=== PATIENT | male | born 1950 | race Caucasian/White ===

== ENCOUNTER 2021-01-23 11:00 | Inpatient (IN) | payer MEDICARE, OTHER ==
[~2021-01-23] VITALS: Ht 180.3 cm; Wt 105.2 kg
[2021-01-23 10:59] LABS: BASOPHILS % (AUTO) 1.5 % (0.0-5.0); EOSINOPHILS % (AUTO) 4.2 % (0.0-8.0); HEMATOCRIT 44.3 % (42-54); LYMPHOCYTES % (AUTO) 30.8 % (21.0-51.0); MEAN CORPUSCULAR HEMOGLOBIN 33.5 pg (27.0-33.0); MEAN CORPUSCULAR HGB CONC 33.6 g/dL (32.0-36.0); MEAN CORPUSCULAR VOLUME 99.6 fL (79-99); MONOCYTES % (AUTO) 16.1 % (3.0-13.0); NEUTROPHILS % (AUTO) 47.2 % (40.0-77.0); PLATELET COUNT (AUTO) 174 K/uL (130-400); RED BLOOD CELL COUNT(AUTO) 4.45 MIL/uL (4.50-6.20); RED CELL DISTRIBUTION WIDTH 12.5 % (11.0-15.5)
[2021-01-23 11:06] LABS: POTASSIUM 4.2 mmol/L (3.5-5.1)
[2021-01-23 11:07] LABS: APPEARANCE,URINE Clear (CLEAR); BILIRUBIN,URINE Negative (NEGATIVE); COLOR,URINE Orange (YELLOW); GLUCOSE, URINE (UA) Negative (NEGATIVE); KETONES,URINE Trace mg/dL (NEGATIVE); LEUKOCYTE ESTERASE ,URINE Trace (NEGATIVE); NITRATE,URINE Negative (NEGATIVE); OCCULT BLOOD,URINE Negative (NEGATIVE); PROTEIN,URINE Negative (NEGATIVE)
[2021-01-23 11:10] LABS: PROTHROMBIN TIME 10.9 SEC (9.6-11.6)
[2021-01-23 11:19] LABS: BACTERIA,URINE Rare /HPF (None Seen); RBC,URINE 0-1 /HPF (0-1); SQUAMOUS EPITHELIAL CELL,UR Rare /HPF (0-2); WBC,URINE 0-1 /HPF (0-1)
[2021-01-24 11:29] VITALS: BP 154/70
[2021-01-24] MEDS ORDERED: TAMS-1 PO (12:33)
[2021-01-24] MEDS ORDERED: BENA40TA92 PO (12:33)
[2021-01-24] MEDS ORDERED: METO-391 PO (12:33)
[2021-01-24] MEDS ORDERED: VITAMIN B12 PO (12:33)
[2021-01-27] VITALS (23 sets, daily range): BP systolic 88–174; BP diastolic 44–91
[2021-01-27] MEDS ORDERED: LACTATED RINGERS 1000ML 1,000 ML IV ONE (08:24)
[2021-01-27] MEDS ORDERED: CEFAZOLIN SODIUM 1 GM VIAL ONE ×3 (09:34→20:17)
[2021-01-27] MEDS ORDERED: TRANEXAMIC ACID 1000MG/10ML ONE ×2 (09:35→15:26)
[2021-01-27] MEDS ORDERED: ACETAMINOPHEN 500 MG TABLET ONE (09:37)
[2021-01-27] MEDS ORDERED: CELECOXIB 200 MG CAP ONE (09:38)
[2021-01-27] MEDS: CEFAZOLIN SODIUM 1 GM VIAL IVP SCH ×3 (09:44→21:02)
[2021-01-27] MEDS ORDERED: SUCCINYLCHOLINE CHLORIDE 20 MG/ML 10 ML VIAL ONE (09:48)
[2021-01-27] MEDS ORDERED: DEXAMETHASONE SOD PHOSPHATE 10MG/ML 1ML VIAL ONE ×2 (09:48→10:48)
[2021-01-27] MEDS ORDERED: LIDOCAINE PF 100MG/5ML (2%) SYRINGE 5ML ONE (09:48)
[2021-01-27] MEDS ORDERED: GLYCOPYRROLATE 1 MG/5 ML SYRINGE ONE (09:49)
[2021-01-27] MEDS ORDERED: MIDAZOLAM HCL 1 MG/ML 2ML VIAL ONE (09:49)
[2021-01-27] MEDS ORDERED: ONDANSETRON 4MG INJ ONE (09:50)
[2021-01-27] MEDS ORDERED: FENTANYL CITRATE PF 50 MCG/1 ML 2ML VIAL ONE (09:50)
[2021-01-27] MEDS ORDERED: ROCURONIUM 10MG/1ML SYR 10 MG/ML ML ONE ×2 (09:50→11:25)
[2021-01-27] MEDS ORDERED: NEOSTIGMINE 5MG/5ML SYR IV ONE (09:50)
[2021-01-27] MEDS ORDERED: PROPOFOL 10 MG/ML 20ML VIAL IV ONE (09:50)
[2021-01-27] MEDS ORDERED: ROPIVACAINE 0.5% 5MG/ML 30ML IJ ONE ×2 (10:01)
[2021-01-27] MEDS ORDERED: MEPERIDINE-PF 25 MG/ML SYG ONE (10:20)
[2021-01-27] MEDS ORDERED: PHENYLEPHRINE HCL 10 MG/ML 1ML VIAL IV ONE (11:01)
[2021-01-27] MEDS ORDERED: FENTANYL CITRATE PF 50 MCG/1 ML 5ML AMP IV ONE (11:25)
[2021-01-27] MEDS ORDERED: CEFAZOLIN SODIUM 1 GM VIAL IRRIG ONE (11:50)
[2021-01-27] MEDS ORDERED: EPHEDRINE SULFATE 50 MG/ML AMPULE ONE ×2 (12:17→14:20)
[2021-01-27] MEDS ORDERED: VASOPRESSIN 20 UNITS/ML 1ML VIAL ONE (15:04)
[2021-01-27] MEDS ORDERED: LIDOCAINE HCL-MPF 1% 2ML VIAL IV PRN (17:00)
[2021-01-27] MEDS: 0.9%NACL 1000ML 1,000 ML IV SCH (17:00)
[2021-01-27] MEDS ORDERED: DiphenhydrAMINE HCL 50 MG/ML VIAL IVP PRN (17:00)
[2021-01-27] MEDS ORDERED: KETOROLAC 15MG/ML VIAL (15MG/ML) IV PRN (17:00)
[2021-01-27] MEDS ORDERED: ONDANSETRON 4MG INJ IVP PRN (17:00)
[2021-01-27] MEDS ORDERED: POTASSIUM CHLORIDE 20MEQ/100ML 100 ML IV PRN (17:00)
[2021-01-27] MEDS ORDERED: POTASSIUM CHLORIDE 10% ELIXIR 20 MEQ/15 ML UDCUP PO PRN (17:00)
[2021-01-27] MEDS ORDERED: FERROUS FUMARATE 324 MG TABLET PO PRN (17:00)
[2021-01-27] MEDS: ACETAMINOPHEN 500 MG TABLET PO SCH (17:00)
[2021-01-27] MEDS ORDERED: TEMAZEPAM 15 MG CAPSULE PO PRN (17:00)
[2021-01-27] MEDS ORDERED: KCL 20 MEQ ERTAB PO PRN (17:00)
[2021-01-27] MEDS ORDERED: CALCIUM CARB 500MG PO PRN (17:00)
[2021-01-27] MEDS ORDERED: OXYCODONE HCL 5 MG TAB PO PRN (17:00)
[2021-01-27] MEDS ORDERED: TRAMADOL HCL 50 MG TABLET PO PRN (17:00)
[2021-01-27] MEDS: CELECOXIB 200 MG CAP PO SCH (20:49)
[2021-01-27] MEDS: PREGABALIN 25 MG CAP PO SCH (20:49)
[2021-01-27] MEDS: FAMOTIDINE 20MG TAB PO SCH (20:49)
[2021-01-27] MEDS: APIXABAN 2.5 MG TABLET PO SCH (20:50)
[2021-01-28] MEDS: ACETAMINOPHEN 500 MG TABLET PO SCH ×3 (01:00→20:52)
[2021-01-28] MEDS: 0.9%NACL 1000ML 1,000 ML IV SCH ×2 (03:00→13:00)
[2021-01-28 04:41] VITALS: BP 121/59
[2021-01-28 04:49] LABS: HEMATOCRIT 30.9 % (42-54); MEAN CORPUSCULAR HEMOGLOBIN 34.8 pg (27.0-33.0); MEAN CORPUSCULAR HGB CONC 34.3 g/dL (32.0-36.0); MEAN CORPUSCULAR VOLUME 101.3 fL (79-99); RED BLOOD CELL COUNT(AUTO) 3.05 MIL/uL (4.50-6.20); RED CELL DISTRIBUTION WIDTH 12.5 % (11.0-15.5); WHITE BLOOD COUNT (AUTO) 9.2 K/uL (4.8-10.8)
[2021-01-28 05:02] LABS: CREATININE 0.9 mg/dL (0.5-1.5); POTASSIUM 4.3 mmol/L (3.5-5.1)
[2021-01-28] MEDS: CEFAZOLIN SODIUM 1 GM VIAL IVP SCH (05:59)
[2021-01-28] MEDS: OXYCODONE HCL 5 MG TAB PO PRN ×2 (06:00→15:10)
[2021-01-28 08:01] VITALS: BP 121/66
[2021-01-28] MEDS: POLYETHYLENE GLYCOL 3350 17 GM POWD.PACK PO SCH (08:44)
[2021-01-28] MEDS: PREGABALIN 25 MG CAP PO SCH ×2 (08:44→20:46)
[2021-01-28] MEDS: FAMOTIDINE 20MG TAB PO SCH ×2 (08:44→20:46)
[2021-01-28] MEDS: APIXABAN 2.5 MG TABLET PO SCH ×2 (08:44→20:46)
[2021-01-28] MEDS: CELECOXIB 200 MG CAP PO SCH ×2 (08:44→20:46)
[2021-01-28] MEDS: TAMSULOSIN HCL 0.4 MG CAP.ER.24H PO SCH (08:45)
[2021-01-28] MEDS: BENAZEPRIL HCL 10 MG TABLET PO SCH (09:00)
[2021-01-28] MEDS ORDERED: TAMSULOSIN HCL 0.4 MG CAP.ER.24H PO SCH (09:00)
[2021-01-28] MEDS: METOPROLOL SUCCINATE 50 MG TAB.SR.24H PO SCH (09:00)
[2021-01-28 10:39] VITALS: BP 110/57
[2021-01-28 15:23] VITALS: BP 119/57
[2021-01-28 20:29] VITALS: BP 127/68
[2021-01-28 23:21] VITALS: BP 126/58
[2021-01-29 04:19] VITALS: BP 130/59
[2021-01-29 05:35] LABS: HEMATOCRIT 28.5 % (42-54); MEAN CORPUSCULAR HEMOGLOBIN 33.6 pg (27.0-33.0); MEAN CORPUSCULAR HGB CONC 33.7 g/dL (32.0-36.0); MEAN CORPUSCULAR VOLUME 99.7 fL (79-99); RED BLOOD CELL COUNT(AUTO) 2.86 MIL/uL (4.50-6.20); RED CELL DISTRIBUTION WIDTH 12.6 % (11.0-15.5); WHITE BLOOD COUNT (AUTO) 9.4 K/uL (4.8-10.8)
[2021-01-29] MEDS: ACETAMINOPHEN 500 MG TABLET PO SCH ×3 (05:37→20:09)
[2021-01-29 05:43] LABS: CREATININE 1.1 mg/dL (0.5-1.5)
[2021-01-29 07:30] VITALS: BP 121/62
[2021-01-29] MEDS: FAMOTIDINE 20MG TAB PO SCH ×2 (07:54→20:09)
[2021-01-29] MEDS: APIXABAN 2.5 MG TABLET PO SCH ×2 (07:54→20:09)
[2021-01-29] MEDS: PREGABALIN 25 MG CAP PO SCH ×2 (07:54→20:09)
[2021-01-29] MEDS: BENAZEPRIL HCL 10 MG TABLET PO SCH ×2 (07:54→08:07)
[2021-01-29] MEDS: CELECOXIB 200 MG CAP PO SCH ×2 (07:55→20:09)
[2021-01-29] MEDS: POLYETHYLENE GLYCOL 3350 17 GM POWD.PACK PO SCH (07:56)
[2021-01-29] MEDS: TAMSULOSIN HCL 0.4 MG CAP.ER.24H PO SCH (07:57)
[2021-01-29] MEDS: METOPROLOL SUCCINATE 50 MG TAB.SR.24H PO SCH (08:07)
[2021-01-29 11:00] VITALS: BP 121/63
[2021-01-29 16:00] VITALS: BP 141/68
[2021-01-29 20:24] VITALS: BP 143/68
[2021-01-30] MEDS ORDERED: BISACODYL 10 MG SUPP.RECT RC PRN (17:00)
== END 2021-01-29 20:20 | DRG 470 ==
LOC: DAHIP 01-27 08:01 → OBSVTOIN 01-27 08:01 → 4AH 01-27 16:23
PROVIDERS: ADMIT Orthopaedic Surgery; ATTEND Orthopaedic Surgery
PROC: 0SR902A Replacement of Right Hip Joint with Metal on Polyethylene Synthetic Substitute, Uncemented, Open Approach (ICD-10-PCS; principal; 2021-01-27 11:36)
DX: M16.11 Unilateral primary osteoarthritis, right hip (principal); I10 Essential (primary) hypertension; D64.9 Anemia, unspecified; Z20.822 Contact with and (suspected) exposure to COVID-19; Z87.891 Personal history of nicotine dependence; Z90.49 Acquired absence of other specified parts of digestive tract; E66.9 Obesity, unspecified; Z68.32 Body mass index [BMI] 32.0-32.9, adult
CPT/HCPCS: 36415; 73503; 80048; 81001; 85025; 85027; 85610; 87088; 87635; 87641; 88305; 88311; 97039; C1776; G0378; J0330; J0690; J1100; J2001; J2175; J2250; J2370; J2405; J2704; J2710; J2795; J3010; J3490; J7120

== ENCOUNTER → 2021-02-19 | Outpatient (CLI) | payer MEDICARE, OTHER ==
[~2021-02-19] MED LIST: BENA40TA92 PO; METO-391 PO; TAMS-1 PO
== END | disposition home or self-care (01) ==
LOC: RAH 08:20
PROVIDERS: ATTEND Internal Medicine
DX: R22.41 Localized swelling, mass and lump, right lower limb (principal)
CPT/HCPCS: 93970

== ENCOUNTER 2023-11-17 09:00 | Observation (INO) | payer MEDICARE, OTHER ==
[~2023-11-17] VITALS: Ht 180.3 cm; Wt 88.8 kg
[2023-11-18 09:52] VITALS: BP 193/93; PULSE 73; RESP 18; TEMP 98.1
[2023-11-18 09:57] LABS: BASOPHILS # (AUTO) 0.11 K/uL (0.00-0.20); BASOPHILS % (AUTO) 2.1 % (0.0-5.0); EOSINOPHILS # (AUTO) 0.18 K/uL (0.00-0.70); EOSINOPHILS % (AUTO) 3.5 % (0.0-8.0); HEMATOCRIT 42.9 % (42-54); IMMATURE GRANULOCYTE ABSOLUTE 0.02 K/uL (0-1); LYMPHOCYTES # (AUTO) 1.4 K/uL (1.0-4.8); LYMPHOCYTES % (AUTO) 26.6 % (21.0-51.0); MEAN CORPUSCULAR HEMOGLOBIN 34.4 pg (27.0-33.0); MEAN CORPUSCULAR VOLUME 98.4 fL (79-99); MONOCYTES # (AUTO) 0.9 K/uL (0.1-1.0); MONOCYTES % (AUTO) 17.4 % (3.0-13.0); NEUTROPHILS # (AUTO) 2.6 K/uL (1.8-7.7); PLATELET COUNT (AUTO) 178 K/uL (130-400); RED BLOOD CELL COUNT(AUTO) 4.36 MIL/uL (4.50-6.20); RED CELL DISTRIBUTION WIDTH 12.8 % (11.0-15.5); WHITE BLOOD COUNT (AUTO) 5.2 K/uL (4.8-10.8)
[2023-11-18] MEDS ORDERED: IBUP-2784 PO (10:03)
[2023-11-18 10:13] LABS: INR 1.01 (0.85-1.15); PROTHROMBIN TIME 10.9 SEC (9.6-11.6)
[2023-11-18 10:14] LABS: PARTIAL THROMBOPLASTIN TIME 27.3 SEC (26.3-35.5)
[2023-11-18 10:17] LABS: ALBUMIN 3.8 g/dL (3.5-5.0); CREATININE 1.1 mg/dL (0.5-1.3)
[2023-11-18 10:20] LABS: APPEARANCE,URINE CLEAR (CLEAR); BILIRUBIN,URINE NEGATIVE (NEGATIVE); COLOR,URINE COLORLESS (YELLOW); GLUCOSE, URINE (UA) NEGATIVE (NEGATIVE); KETONES,URINE NEGATIVE (NEGATIVE); LEUKOCYTE ESTERASE ,URINE NEGATIVE Leu/uL (NEGATIVE); NITRATE,URINE NEGATIVE (NEGATIVE); OCCULT BLOOD,URINE NEGATIVE (NEGATIVE); PH,URINE 5.5 (5.0-8.0); PROTEIN,URINE NEGATIVE (NEGATIVE); UROBILINOGEN,URINE 0.2 mg/dL (0.2-1.0)
[2023-11-18 11:14] LABS: ADD UA MICROSCOPIC NO
[2023-11-22] VITALS (28 sets, daily range): BP systolic 127–185; BP diastolic 56–86; PULSE 62–86; RESP 15–19; TEMP 97.1–98.1; O2SAT 97
[2023-11-22] MEDS: LACTATED RINGERS 1000ML 1,000 ML IV ONE (07:17)
[2023-11-22 08:15] LABS: CREATININE 0.9 mg/dL (0.5-1.3)
[2023-11-22] MEDS ORDERED: SUCCINYLCHOLINE CHLORIDE 20 MG/ML 10 ML VIAL ONE (09:49)
[2023-11-22] MEDS ORDERED: LIDOCAINE PF 100MG/5ML (2%) SYRINGE 5ML ONE (09:49)
[2023-11-22] MEDS ORDERED: GLYCOPYRROLATE 0.2 MG/ML 5 ML VIAL ONE (09:50)
[2023-11-22] MEDS ORDERED: NEOSTIGMINE METHYLSULFATE 1MG/ML IV ONE (09:50)
[2023-11-22] MEDS ORDERED: MIDAZOLAM HCL 1 MG/ML 2ML VIAL ONE (09:50)
[2023-11-22] MEDS ORDERED: proPOFol 10 MG/ML 20ML VIAL IV ONE (09:50)
[2023-11-22] MEDS ORDERED: rocuRONium bROMide 10MG/1ML 5ML VL ONE (09:51)
[2023-11-22] MEDS ORDERED: FENTanyl CITRate PF 50 MCG/1 ML 2ML VIAL ONE (09:52)
[2023-11-22] MEDS: ceFAZolin SODIUM 2 GM VIAL IVPB ONE (10:15)
[2023-11-22] MEDS ORDERED: ePHEDrine SULFate 50 MG/ML AMPULE ONE (10:23)
[2023-11-22] MEDS ORDERED: TRANEXAMIC ACID 1000MG/10ML ONE (10:44)
[2023-11-22] MEDS ORDERED: FERROUS FUMARATE 324 MG TABLET PO PRN (12:30)
[2023-11-22] MEDS ORDERED: CYCLOBENZAPRINE HCL 10 MG TABLET PO PRN (12:30)
[2023-11-22] MEDS ORDERED: PoTASSium chl 10% ELIXIR 20MEQ 20 MEQ/15 ML UDCUP PO PRN (12:30)
[2023-11-22] MEDS ORDERED: CALCIUM CARB 500MG PO PRN (12:30)
[2023-11-22] MEDS ORDERED: PoTASSium chloRIDE 20MEQ/100ML 100 ML IV PRN (12:30)
[2023-11-22] MEDS ORDERED: ondanSETRON 4MG INJ IVP PRN (12:30)
[2023-11-22] MEDS ORDERED: traMADol HCL 50 MG TABLET PO PRN (12:30)
[2023-11-22] MEDS ORDERED: ROPivacaine 0.5% 5MG/ML 30ML ONE (12:35)
[2023-11-22] MEDS: MEPERIDINE-PF 25 MG/ML SYG ONE ×2 (13:13→13:37)
[2023-11-22] MEDS: FENTanyl CITRate PF 50 MCG/1 ML 2ML VIAL ONE (13:24)
[2023-11-22] MEDS: ketOROlac 15MG/ML VIAL (15MG/ML) ONE (14:03)
[2023-11-22] MEDS: ceFAZolin SODIUM 2 GM VIAL ONE (18:39)
[2023-11-22] MEDS: ceFAZolin SODIUM 2 GM VIAL IVPB SCH (18:41)
[2023-11-22] MEDS: HYDROcodone/APAP 5/325 1 TAB TABLET PO PRN (18:44)
[2023-11-22] MEDS: ketOROlac 15MG/ML VIAL (15MG/ML) IV SCH (20:19)
[2023-11-22] MEDS: doCUSate SODIUM 100 MG CAP PO SCH (20:19)
[2023-11-22] MEDS: GABApentin 100 MG CAPSULE PO SCH (20:19)
[2023-11-23] VITALS (8 sets, daily range): BP systolic 131–164; BP diastolic 63–82; PULSE 72–82; RESP 18–19; TEMP 98–99.5; O2SAT 98
[2023-11-23 05:17] LABS: CREATININE 0.9 mg/dL (0.5-1.3); POTASSIUM 3.8 mmol/L (3.5-5.1)
[2023-11-23 05:21] LABS: MEAN CORPUSCULAR HEMOGLOBIN 34.6 pg (27.0-33.0); MEAN CORPUSCULAR HGB CONC 35.3 g/dL (32.0-36.0); RED BLOOD CELL COUNT(AUTO) 3.47 MIL/uL (4.50-6.20); RED CELL DISTRIBUTION WIDTH 12.8 % (11.0-15.5); WHITE BLOOD COUNT (AUTO) 8.3 K/uL (4.8-10.8)
[2023-11-23] MEDS: PoTASSium chloRIDE 20MEQ ER 20 MEQ ERTAB PO PRN (06:01)
[2023-11-23] MEDS: 0.9%NACL 1000ML 1,000 ML IV SCH (08:30)
[2023-11-23] MEDS: BENAZEPRIL HCL 40 MG PO SCH (09:00)
[2023-11-23] MEDS: ASPIRIN 325MG EC TAB PO SCH (09:39)
[2023-11-23] MEDS: polyETHYLene GLYCol 3350 17 GM POWD.PACK PO SCH (09:39)
[2023-11-23] MEDS: tamSULOsin HCL 0.4 MG CAP.ER.24H PO SCH (09:40)
[2023-11-23] MEDS: metOPROLol sucCINATE 50 MG TAB.SR.24H PO SCH (09:40)
[2023-11-23] MEDS ORDERED: ketOROlac 15MG/ML VIAL (15MG/ML) IV PRN (12:30)
[2023-11-25] MEDS ORDERED: BisaCODYL 10 MG SUPP.RECT RC PRN (12:30)
== END 2023-11-23 20:45 ==
LOC: DAHIP 11-22 06:55 → 4BH 11-22 14:45
PROVIDERS: ADMIT Student in an Organized Health Care Education/Training Program; ATTEND Student in an Organized Health Care Education/Training Program
DX: M16.12 Unilateral primary osteoarthritis, left hip (principal); D62 Acute posthemorrhagic anemia; G89.29 Other chronic pain; I10 Essential (primary) hypertension; N40.0 Benign prostatic hyperplasia without lower urinary tract symptoms; E66.9 Obesity, unspecified; R26.9 Unspecified abnormalities of gait and mobility; Z79.899 Other long term (current) drug therapy; Z68.27 Body mass index [BMI] 27.0-27.9, adult
CPT/HCPCS: 82040; 80048 ×3; 85025; 85610; 85730; 87086; 84134; 86140; 81003; 36415 ×3; 93005; 87641; 64486; 27130; 96365; 96375; 73503; 73521; 97161; 97116 ×3; 97530 ×5; 96376; 96366; 85027; G0378 ×26; G0379; A4600; A4223 ×2; A4663; C1776; J7120; J3010 ×2; J3490 ×6; J0330; J2001; J2250; J2704; J2710; J2175 ×2; J2795; J1885 ×3; J0690 ×4; A4649 ×2; A4930; A6255; A5120; A4215; A4657; A4213; A4222; A4221; A4216; J7030